=== PATIENT | male | born 1935 ===

== ENCOUNTER 2018-06-07 06:14 | Day surgery (SDC) | payer MEDICARE, OTHER ==
[2018-06-07] MEDS ORDERED: EPHEDRINE SULFATE 50 MG/ML ML IV ONE (06:15)
[2018-06-07] MEDS ORDERED: PROPOFOL 10 MG/ML VIAL IV ONE (06:15)
[2018-06-07] MEDS ORDERED: LIDOCAINE 2% MDV (20MG/ML) 20ML VIAL IV ONE (06:15)
--- NOTE | 2018-07-06 08:00 | Operative Note ---
DATE OF SURGERY: 07/05/2018 OPERATION: 1. ESOPHAGOGASTRODUODENOSCOPY. 2. COLONOSCOPY. PREOPERATIVE DIAGNOSES: 1. History of bleeding ulcer. 2. Hematochezia. POSTOPERATIVE DIAGNOSES: 1. A 6 cm hiatal hernia. 2. Nonerosive antral gastritis. 3. Colonic diverticulosis, left greater than right, with an associated fair-quality colonic preparation. SPECIMENS: Random gastric. ESTIMATED BLOOD LOSS: Minimum. COMPLICATIONS: None apparent. PROCEDURE: After informed consent was obtained from the patient, he was placed in the left lateral decubitus position in the endoscopy suite, sedated and monitored by the department of anesthesia. A well-lubricated [id number] gastroscope was placed in the posterior oropharynx under direct visualization and passed to the proximal esophagus. The endoscope was advanced through the proximal, mid, and distal esophagus. The GE junction was unremarkable. There was a 6 cm hiatal hernia. The subdiaphragmatic stomach demonstrated mild spotty erythema. The pylorus and duodenal bulb and sweep were otherwise unremarkable. J-turn views of the proximal stomach revealed a hiatal hernia. The endoscope was straightened and random gastric biopsies were obtained. No excessive bleeding was identified. The endoscope was removed from the patient with no new findings noted. Digital rectal exam was unremarkable. A well-lubricated [id number] colonoscope was inserted into the rectum and advanced to the cecum. Preparation quality was fair. The cecum, cecal bulb, ascending colon, transverse colon, descending colon, sigmoid colon, and rectum were unremarkable other than scattered diverticular disease seen throughout the colon, more prominently seen in the left colon than the right. No inflammatory changes, mass lesions, or polyps were seen. Small polyps may have been obscured by the preparation quality, however. J-turn views and forward views of the rectum and anorectum were unremarkable. The endoscope was straightened, the rectal ampulla deflated, and the endoscope was removed. RECOMMENDATIONS: The patient should continue his current medical program and should be on a high-fiber diet and use a fiber supplement. Given his age, I do not believe repeating his colonoscopy in particular would be worthwhile despite the fact he did have a fair prep. As always, thank you for allowing me to participate in the healthcare of your patients. CC: Jarad Red, DO [email or web address]
== END 2018-06-07 08:33 | disposition home or self-care (01) ==
LOC: HOP 06:14
PROVIDERS: ATTEND Internal Medicine Gastroenterology
DX: K92.1 Melena (principal); K57.30 Diverticulosis of large intestine without perforation or abscess without bleeding; Z87.19 Personal history of other diseases of the digestive system; K44.9 Diaphragmatic hernia without obstruction or gangrene; K29.60 Other gastritis without bleeding; I10 Essential (primary) hypertension